=== PATIENT | male | born 1945 | race Caucasian/White ===

== ENCOUNTER 2022-12-16 15:09 | Inpatient (IN) | payer MEDICARE, OTHER ==
[~2022-12-16] VITALS: Ht 177.8 cm; Wt 105.0 kg
[2022-12-16 15:55] LABS: Basophils # (auto) 0 10 ^3/uL (0-0.2); Eosinophils # (auto) 0.1 10 ^3/uL (0-0.8); Mean Corpuscular Volume 98.6 fL (80.0-100.0); Monocytes # (auto) 0.1 10 ^3/uL (0-1.3)
[2022-12-16 15:56] LABS: Basophils % (auto) 0.1 % (0.0-2.0); Eosinophils % (auto) 1.2 % (0.0-7.0); Hematocrit 28.6 % (41.0-53.0); Hemoglobin 8.7 g/dL (13.5-17.5); Lymphocytes # (auto) 0.3 10 ^3/uL (0.4-5.4); Lymphocytes % (auto) 6.5 % (10.0-50.0); Mean Corpuscular Hemoglobin 30.1 pg (28.0-32.0); Mean Corpuscular Hgb Conc. 30.5 g/dL (32.0-36.0); Monocytes % (auto) 1.5 % (0.0-12.0); Neutrophils # (auto) 4.6 10 ^3/uL (1.6-8.6); Neutrophils % (auto) 90.7 % (37.0-80.0); Nucleated Red Blood Cells % 1.3 %
[2022-12-16 16:12] LABS: INR 1.82 (0.9-1.15)
[2022-12-16 16:20] LABS: Red Cell Distribution Width 21.1 % (11.8-14.3)
[2022-12-16 16:21] LABS: Albumin 2.1 g/dL (3.4-5.0); Calcium 7.8 mg/dL (8.5-10.1); Potassium 5.1 mmol/L (3.5-5.1)
[2022-12-16 16:24] LABS: BUN/Creatinine Ratio 16.1 (10.0-20.0); Bilirubin, Total 2.6 mg/dL (0.2-1.0); Total Protein 6.3 g/dL (6.4-8.2)
[2022-12-16 16:25] LABS: Lactic Acid w/Reflex 7.5 mmol/L (0.4-2.0)
[2022-12-16] MEDS ORDERED: FUROSEMIDE 100 MG/10ML VIAL IV ONE (16:45)
[2022-12-16 17:05] LABS: Urine Bacteria FEW /hpf (None Seen); Urine Blood 3+ /uL (Negative); Urine Specific Gravity 1.018 (1.001-1.035); Urine WBC 17 /hpf (0 - 3)
[2022-12-16] MEDS ORDERED: DEXTROSE (50%) 50ML SYRG IV ONE (17:15)
[2022-12-16] MEDS ORDERED: DEXTROSE 10% 1,000 ML IV ONE (17:15)
[2022-12-16] MEDS ORDERED: PIPERACILLIN-TAZOB 3.375GM 100 ML IV ONE (17:15)
[2022-12-16 17:35] VITALS: BP 166/117
[2022-12-16 19:21] VITALS: BP 96/57
[2022-12-16] MEDS: DEXTROSE 10% 250 ML Bag IV ONE ×2 (20:30→23:53)
[2022-12-16] MEDS ORDERED: MIDAZOLAM DRIP 50 mg/50mL 50 ML IV SCH (21:15)
[2022-12-16] MEDS: ETOMIDATE (2MG/ML) 20ML VIAL IV ONE ×2 (21:17→23:57)
[2022-12-16] MEDS: SUCCINYLCHOLINE CHLORIDE 20 MG/ML 10ML VIAL IV ONE ×2 (21:17→23:57)
[2022-12-16 21:20] VITALS: BP 66/36
[2022-12-16] MEDS ORDERED: NOREPINEPHRINE 8 MG/250ML KIT 250 ML IV SCH (21:30)
[2022-12-16] MEDS ORDERED: VANCOMYCIN PER PHARMACY 0 MG IV SCH ×2 (22:00→22:15)
[2022-12-16] MEDS ORDERED: VANCOMYCIN 1GM/250ML 250 ML IV ONE (22:00)
[2022-12-16] MEDS ORDERED: MORPHINE SULFATE INJ 2 MG/ml SYRG IV PRN (22:15)
[2022-12-16] MEDS ORDERED: NITROGLYCERIN 0.4 MG SL TAB SL PRN (22:15)
[2022-12-16] MEDS ORDERED: VASOPRESSIN 40 UNITS in D5W 5% 198 ML IV SCH (22:15)
[2022-12-16] MEDS ORDERED: VASOPRESSIN 20 UNITS in SODIUM CHL 0.9% 99 ML IV SCH (22:15)
[2022-12-16 22:26] VITALS: BP 76/34
[2022-12-16] MEDS ORDERED: DEXTROSE 10% 1,000 ML IV SCH (22:30)
[2022-12-16 22:47] LABS: Hemoglobin 8.6 g/dL (13.5-17.5)
[2022-12-16 22:48] LABS: Hematocrit 28.5 % (41.0-53.0)
[2022-12-17] MEDS ORDERED: FUROSEMIDE 40 MG/4 ML VIAL IV SCH (06:00)
[2022-12-17] MEDS ORDERED: PIPERACILLIN-TAZOB 3.375GM 100 ML IV SCH (10:00)
== END 2022-12-16 22:45 | DRG 871 ==
LOC: ER 15:09 → TELE 22:22
PROVIDERS: ADMIT Nurse Practitioner; ATTEND Internal Medicine Pulmonary Disease
PROC: 5A09357 Assistance with Respiratory Ventilation, Less than 24 Consecutive Hours, Continuous Positive Airway Pressure (ICD-10-PCS; principal; 2022-12-16)
DX: A41.9 Sepsis, unspecified organism (principal); G93.41 Metabolic encephalopathy; J96.01 Acute respiratory failure with hypoxia; R65.21 Severe sepsis with septic shock; N17.9 Acute kidney failure, unspecified; D64.9 Anemia, unspecified; E16.2 Hypoglycemia, unspecified; N18.9 Chronic kidney disease, unspecified; I50.82 Biventricular heart failure; Z88.0 Allergy status to penicillin
CPT/HCPCS: 36415; 36600; 71045; 80053; 81001; 82805; 82962; 83605; 83880; 84484; 85014; 85018; 85025; 85610; 86850; 86900; 86901; 87040; 87070; 87077; 87186; 87205; 94002; 94660; 99291; G0378; J0330; J2250; J2543; J7060